=== PATIENT | male | born 1975 | race Two or more races ===

== ENCOUNTER 2017-01-31 16:18 | Day surgery (SDC) | payer OTHER ==
[2017-01-31] VITALS (11 sets, daily range): BP systolic 132–176; BP diastolic 81–104; PULSE 64–88; RESP 17–18; Ht 165.1 cm; Wt 67.4 kg
[~2017-01-31] VITALS: Ht 165.1 cm; Wt 67.4 kg
--- NOTE | 2017-01-31 18:37 | HPN ---
Date/Time of Note Date/Time of Note DATE: 01/31/17 TIME: 18:37 Interval H&P Admission Note Pt. seen H&P reviewed: No system changes SUKUMAR ZAMORA DPM Jan 31, 2017 18:37
[2017-01-31] MEDS ORDERED: DEXAMETHASONE 4 MG/ML 1 ML INJ ONE (18:45)
[2017-01-31] MEDS ORDERED: BUPIVACAINE 0.5% (SDV) 30 ML INJ ONE (18:45)
[2017-01-31] MEDS ORDERED: LIDOCAINE 1% (MPF) 30 ML INJ ONE (18:45)
[2017-01-31] MEDS ORDERED: FENTAnyl 50 MCG/ML VIAL ONE ×2 (19:20→19:33)
[2017-01-31] MEDS ORDERED: ROCURONIUM 50 MG INJ ONE (19:37)
[2017-01-31] MEDS ORDERED: PROPOFOL 40 ML ONE (19:37)
[2017-01-31] MEDS ORDERED: CEFAZOLIN 1 GM INJ ONE (19:37)
[2017-01-31] MEDS ORDERED: LIDOCAINE 2% (SDV) 5 ML INJ ONE (19:37)
[2017-01-31] MEDS ORDERED: SUGAMMADEX SODIUM 200 MG/2 ML VIAL IV ONE (19:37)
[2017-01-31] MEDS ORDERED: SUCCINYLCHOLINE CHLORIDE 100 MG/5 ML SYG IV ONE (19:37)
[2017-01-31] MEDS ORDERED: morphine 10 MG INJ ONE (20:45)
[2017-01-31] MEDS ORDERED: MIDAZOLAM 1 MG/ML 2 ML INJ IV PRN (21:30)
[2017-01-31] MEDS ORDERED: hydrALAzine 20 MG INJ IV PRN (21:30)
[2017-01-31] MEDS ORDERED: ONDANSETRON 4 MG INJ IV PRN (21:30)
[2017-01-31] MEDS ORDERED: OXYCODONE/ACETAMINOPHEN (5/325) TAB PO PRN ×2 (21:30)
[2017-01-31] MEDS ORDERED: ALBUTEROL 0.083% (NEB) 2.5 MG/3 ML AMP HHN PRN (21:30)
[2017-01-31] MEDS ORDERED: KETOROLAC 30 MG INJ IV PRN (21:30)
[2017-01-31] MEDS ORDERED: MEPERIDINE 25 MG INJ IV PRN (21:30)
[2017-01-31] MEDS ORDERED: DIPHENHYDRAMINE 50 MG INJ IV PRN (21:30)
[2017-01-31] MEDS ORDERED: HYDROmorphONE (0.2 MG/ML) 10ML SYG IV PRN ×3 (21:30)
[2017-01-31] MEDS ORDERED: LABETALOL HCL 20MG INJ IV PRN (21:30)
[2017-01-31] MEDS ORDERED: METOCLOPRAMIDE 10 MG INJ IV PRN (21:30)
[2017-01-31] MEDS ORDERED: FENTAnyl 50 MCG/ML VIAL IV PRN ×3 (21:30)
[2017-01-31] MEDS ORDERED: EPHEDrine SULFATE 50 MG/5 ML SYG IV PRN (21:30)
--- NOTE | 2017-01-31 21:56 | RADRPT ---
PROCEDURE: Intraoperative imaging of the left foot with fluoroscopy. CLINICAL INDICATION: Left foot pain. Intraoperative. TECHNIQUE: 7 images of the left foot were obtained in the operating room with an image intensifier . No radiologist was in attendance. Fluoroscopy time is 10 seconds. COMPARISON: No prior study is available for comparison. FINDINGS: Images demonstrate surgical instruments overlying the left foot. Images demonstrate fusion of the fi rst, second, third tarsal-metatarsal joints. IMPRESSION: 1. Intraoperative imaging of the left foot. RPTAT: QQ .Denton Urrutia MD, MD Date Time Electronically viewed and signed by .Denton Urrutia MD, on 01/31/2017 21:56 .R/
--- NOTE | 2017-02-06 11:58 | OPR ---
DATE OF OPERATION: 01/31/2017 SURGEON: Edwige Carmichael DPM VEGETABLE GROWER: Jan Meadows DPM ANESTHESIOLOGIST: DR. PINEDA ANESTHESIA: General. 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 PROCEDURE PERFORMED: Arthrodesis of the tarsometatarsal joints, left foot. DESCRIPTION OF PROCEDURE: The patient was brought into the operating room and placed on the table in a secure supine position. Cardiac morning, IV sedation, and a thigh pneumatic tourniquet were utilized for this case. Preoperatively, 20 cc of 0.5 percent Marcaine plain were infiltrated approximately at the midfoot in the form of a local anesthetic block for postoperative management of pain. The foot was then prepped and draped in the usual sterile manner with Betadine prep. The thigh tourniquet was inflated to 300 mmHg. Procedure number 1 was then performed. Arthrodesis of the tarsal metatarsal joints of the left foot. The 4 cm incision was placed over the second cuneiform and second metatarsal base. Incision was deepened. Superficial bleeders were cauterized and bovied as necessary. The incision was deepened down to the periosteum. Periosteum was reflected medially and laterally. The second metatarsal cuneiform joint was identified which was noted to be arthritic with osteophytes. The cartilaginous surface was denuded from the base of the second metatarsal and intermediate phalanx. In addition, the cartilaginous surface between the intercuneiform joint of the medial cuneiform and second cuneiform was also denuded of cartilage. Arthrodesis was achieved with three 4.0 mm cannulated Nova screws across the second metatarsal and intermediate cuneiforms. A second screw was inserted from medial to lateral from the medial cuneiform to the intermediate cuneiform, and the third screw was added for greater stability from the intermediate cuneiform to the medial cuneiform. Additionally, a staple was used dorsally at the second metatarsal intermediate cuneiform for added stability. The patient had adequate reduction of the Lisfranc's complex which was evident using intraoperative fluoroscopy. The joint surfaces were realigned. The surgical site was irrigated with sterile saline and bacitracin solution. It should also be noted that Vitoss was inserted at the arthrodesis sites to facilitate arthrodesis. The subcutaneous tissue was closed with 4-0 Vicryl simple interrupted sutures. Subcutaneous tissue was closed with 4-0 Vicryl simple interrupted sutures. The skin edges were reapproximated with 3-0 Prolene simple interrupted stitches. The dressing consisted of Xeroform gauze, 4 x 4 gauze, 4 inch Kerlix roll, and 2 inch Coban to semicompressive dressing. Immediate hyperemia was noted upon deflating the thigh tourniquet to all digits of the left foot. The posterior splint was then applied to the left foot and leg. The patient left the OR with vital signs stable and satisfactory. The patient will follow up one week postop. Dictated By: Edwige Carmichael DPM /[email or web address] /Document#: [id number]
== END 2017-01-31 22:51 | disposition home or self-care (01) ==
LOC: SDS 16:18
PROVIDERS: ATTEND Podiatrist Primary Podiatric Medicine
DX: M13.872 Other specified arthritis, left ankle and foot (principal); I10 Essential (primary) hypertension
CPT/HCPCS: 28740; 73630; C1713; J0690; J1170; J2175; J2270; J2765; J3010; Z7512; Z7610; J1100